=== PATIENT | female | born 1995 | race Caucasian/White ===

== ENCOUNTER 2016-05-20 12:06 | Emergency (ER) | payer SELFPAY ==
[~2016-05-20] VITALS: Ht 152.4 cm; Wt 52.0 kg
[~2016-05-20 12:06] MED LIST: MEDR10 PO
[2016-05-20 12:12] VITALS: BP 130/70; PULSE 52; RESP 16; TEMP 97.7; O2SAT 99
--- NOTE | 2016-05-20 12:49 | PD ---
HPI . right wrist cyst Chief Complaint: Lump, Cyst, Hernia Time Seen by Provider: 12:44 Travel History International Travel<30 days: No Contact w/Intl Traveler<30days: No Traveled to known affect area: No History of Present Illness HPI 21-year-old female here with complaint of a cyst on her right wrist. Patient is aware that this is a ganglion cyst and was hoping that we can do something with it here in the emergency department. She recently moved to area and does not have a primary care provider. She tells me that the cyst is causing pain in her wrist and sometimes numbness. She denies any other issues. She is able to use her hand. She has had the pain for over 1 month and noticed the lump 4 days ago. History Past Medical Histgory LMP: 04/30/16 Social History Alcohol Use: No Tobacco Use: Yes (1 PPD) Allergies-Medications (Allergen,Severity, Reaction): Coded Allergies: No Known Allergies (Verified , 04/20/15) Reported Meds & Prescriptions Reported Meds & Active Scripts Active Provera 10 Mg Tab (Medroxyprogesterone Acetate) 10 Mg Tab 10 Mg PO DAILY 7 Days Review of Systems General / Constitutional: No: Fever Eyes: No: Visual changes HENT: No: Headaches Cardiovascular: No: Chest Pain or Discomfort Respiratory: No: Shortness of Breath Gastrointestinal: No: Abdominal Pain Genitourinary: No: Dysuria Musculoskeletal: Positive: Pain (right wrist pain) Skin: No Rash Neurologic: No: Weakness Psychiatric: No: Depression Endocrine: No: Polydipsia Hematologic/Lymphatic: No: Easy Bruising Physical Exam Narrative GENERAL: AAO x 3, no acute distress, Well-nourished, well-developed patient. SKIN: Warm and dry. No visible rashes or bruising. HEAD: Normocephalic and atraumatic. EYES: No scleral icterus. No injection or drainage. ENT: No nasal drainage noted. Mucous membranes pink. Airway patent. NECK: Supple, trachea midline. No JVD. CARDIOVASCULAR: Regular rate and rhythm without murmurs, gallops, or rubs. RESPIRATORY: Breath sounds equal bilaterally. No accessory muscle use. No rhonchi or rales. GASTROINTESTINAL: Abdomen soft, non-tender, nondistended. EXTREMITIES: No cyanosis or edema. right wrist with small 1-1.5 cm ganglion cyst : no other abn. full rom of joints and fingers BACK: Nontender without obvious deformity. No CVA tenderness. PSYCH: AAO x 3, normal affect. Data Data Last Documented VS Vital Signs Date Time Temp Pulse Resp B/P Pulse Ox O2 Delivery O2 Flow Rate FiO2 05/20/16 12:12 97.7 52 16 130/70 99 Room Air MDM Medical Screen Exam Complete: Yes Emergency Medical Condition: No Differential Diagnosis ganglion cyst, less likely CTS, less likely fracture Narrative Course 21-year-old female here with complaint of a cyst on her right wrist. Patient is aware that this is a ganglion cyst and was hoping that we can do something with it here in the emergency department. She recently moved to [facility] and does not have a primary care provider. She tells me that the cyst is causing pain in her wrist and sometimes numbness. She denies any other issues. She is able to use her hand. She has had the pain for over 1 month and noticed the lump 4 days ago. It has been present for a long time, but now causing more issues. Recommend establishing with PCP and ortho referral. A medical screening exam was performed: At the time of evaluation the presenting medical condition was determined not to be of an emergent nature. The patient was given the option of receiving additional care, but declined. Patient was given options for additional community resources from which to obtain care. The Patient Has Been advised to seek medical attention for their presenting complaint. The patient has been advised to return to the ER at any time if an emergent condition develops. Primary Impression: Encounter for medical screening examination Condition: Stable Mari Sands May 20, 2016 12:49
== END 2016-05-20 13:12 | disposition left against medical advice (07) ==
LOC: NEPB 12:06
DX: M67.431 Ganglion, right wrist (principal); F17.210 Nicotine dependence, cigarettes, uncomplicated
CPT/HCPCS: 99281